=== PATIENT | female | born 1985 | race Asian ===

== ENCOUNTER 2018-11-09 10:26 | Day surgery (SDC) | payer OTHER ==
[2018-11-09] MEDS ORDERED: DIPHENHYDRAMINE 50 MG INJ IV (12:30)
[2018-11-09] MEDS ORDERED: LABETALOL HCL 20MG INJ IV (12:30)
[2018-11-09] MEDS ORDERED: hydrALAzine 20 MG INJ IV (12:30)
[2018-11-09] MEDS ORDERED: EPHEDrine SULFATE 50 MG/5 ML SYG IV (12:30)
[2018-11-09] MEDS ORDERED: PROPOFOL 100 ML (12:41)
[2018-11-09] MEDS ORDERED: HYDROmorphONE 2 MG/ML SYG (12:41)
[2018-11-09] MEDS ORDERED: ONDANSETRON 4 MG INJ (13:04)
[2018-11-09] MEDS: MEPERIDINE 25 MG INJ IV (14:10)
[2018-11-09] MEDS: ONDANSETRON 4 MG INJ IV (14:10)
[2018-11-09] MEDS: HYDROmorphONE 1 MG/5 ML IV SYRINGE IV ×3 (14:11→14:46)
== END 2018-11-09 17:05 | disposition home or self-care (01) ==
LOC: SDS 10:26
DX: S83.512A Sprain of anterior cruciate ligament of left knee, initial encounter (principal); S83.242A Other tear of medial meniscus, current injury, left knee, initial encounter; X58.XXXA Exposure to other specified factors, initial encounter; Y93.89 Activity, other specified; Y92.89 Other specified places as the place of occurrence of the external cause; Y99.8 Other external cause status
CPT/HCPCS: 29881